=== PATIENT | female | born 1990 ===

== ENCOUNTER 2016-07-26 13:32 | Emergency (ER) | payer OTHER ==
[2016-07-26 13:46] VITALS: BP 121/85; PULSE 80; RESP 18; TEMP 98.4; O2SAT 100
--- NOTE | 2016-07-26 14:13 | ED PDOC ---
HPI: General Adult Time Seen by Provider: 07/26/16 13:49 Chief Complaint (Nursing): ENT Problem Chief Complaint (Provider): Left ear pain History Per: Patient History/Exam Limitations: no limitations Onset/Duration Of Symptoms: Days Have you had recent travel within the past 21 days to any of the following countries: [place], [place], [place] or [place]?: No Current Symptoms Are (Timing): Still Present Severity: Moderate Additional History Per: Patient Additional Complaint(s): The pt is a 25yo female, presents to the ED for evaluation of left ear pain, radiating down her left neck for the past 2 weeks. Pt reports initially the pain wasn't "bad" s she did not visit the ER but has been progressively worsening prompting her visit today. She reports she has been taking OTC pain medications without relief. She reports some associated headache. Pt denies any throat pain or fever. She offers no other medical complaints. NKDA Past Medical History Vital Signs: Last Vital Signs Temp 98.4 F 07/26/16 13:43 Pulse 80 07/26/16 13:43 Resp 18 07/26/16 13:43 BP 121/85 07/26/16 13:43 Pulse Ox 100 07/26/16 17:44 - Surgical History Surgical History: No Surg Hx - Family History Family History: States: No Known Family Hx - Social History Current smoker - smoking cessation education provided: No Alcohol: None Drugs: Denies - Immunization History Hx Tetanus Toxoid Vaccination: No Hx Influenza Vaccination: No Hx Pneumococcal Vaccination: No - Home Medications Home Medications: Ambulatory Orders Medication Instructions Recorded Sulfamethoxazole/Trimethoprim 1 tab PO BID #14 tab 01/06/16 [Bactrim DS 800 mg-160 mg] traMADol [Ultram] 50 mg PO Q8 #10 tab 01/28/16 Amoxicillin 875 mg PO BID #20 tab 07/26/16 - Allergies Allergies/Adverse Reactions: Allergies Allergy/AdvReac Type Severity Reaction Status Date / Time No Known Allergies Allergy Verified 11/11/13 23:05 Review of Systems ROS Statement: Except As Marked, All Systems Reviewed And Found Negative Constitutional: Negative for: Fever ENT: Positive for: Ear Pain (left) Musculoskeletal: Positive for: Neck Pain (left sided, radiating from left ear) Neurological: Positive for: Headache (mild) Physical Exam - Reviewed Nursing Documentation Reviewed: Yes Vital Signs Reviewed: Yes - Physical Exam Appears: Positive for: Well, Non-toxic, No Acute Distress Head Exam: Positive for: ATRAUMATIC, NORMAL INSPECTION, NORMOCEPHALIC Skin: Positive for: Normal Color Eye Exam: Positive for: Normal appearance ENT: Positive for: TM Is/Are (left TM mildly erythematous without perforation. Right TM normal. Left mastoid tenderness noted.) Neck: Positive for: Normal Cardiovascular/Chest: Positive for: Regular Rate, Rhythm Respiratory: Positive for: Normal Breath Sounds. Negative for: Respiratory Distress Neurologic/Psych: Positive for: Alert, Oriented - Laboratory Results Result Diagrams: 07/26/16 14:25 07/26/16 14:25 - ECG O2 Sat by Pulse Oximetry: 100 (RA) Pulse Ox Interpretation: Normal Medical Decision Making Medical Decision Making: Time: 1400 Impression: Left Otitis media Plan: -- CT Mastoid w/ contrast -- CMP -- CBC Time: 1728 CT Mastoid Findings: The mastoid portions of both temporal bones are well developed and currently well-aerated. The middle ear canals and contents are on unremarkable. The drum spurs and ossicular chains are intact and appropriately located. No soft tissue seen within Prussak space or within the middle ear canal. The tympanic membranes so far as can be seen appear normal. The inner ear structures appear well-developed without gross abnormality. The internal auditory canals are unremarkable with symmetric appearing right and left porous acusticus. . The external auditory canals are clear. No bony destructive changes are identified. Impression: Unremarkable examination of the temporal bones. Scribe Attestation: Documented by Latasha Massey, acting as a scribe for FRANCK Wolff Provider Attestation: All medical record entries made by the Scribe were at my direction and personally dictated by me. I have reviewed the chart and agree that the record accurately reflects my personal performance of the history, physical exam, medical decision making, and the department course for this patient. I have also personally directed, reviewed, and agree with the discharge instructions and disposition. Disposition - Clinical Impression Clinical Impression: Left ear pain - Patient ED Disposition Is Patient to be Admitted: No Counseled Patient/Family Regarding: Diagnosis, Need For Followup, Rx Given - Disposition Referrals: [facility] [Outside] Disposition: Routine/Home Disposition Time: 17:44 Condition: GOOD Prescriptions: Amoxicillin 875 mg PO BID #20 tab Instructions: Earache (ED) Print Language: OCCITAN
[2016-07-26 14:34] LABS: BASO % 0.5 % (0.0-2.0); EOS % 0.6 % (0.0-4.0); HEMATOCRIT 30.4 % (34.0-47.0); LYMPH # 2.2 K/uL (1.0-4.3); LYMPH % 32.9 % (20.0-40.0); MEAN CELL VOLUME 81.7 fl (81.0-99.0); MEAN PLATELET VOLUME 8.2 fl (7.2-11.7); MONO # 0.5 K/uL (0.0-0.8); NEUT # 3.9 K/uL (1.8-7.0); NRBC % 0.1 % (0.0-0.0); RED CELL DISTRIBUTION WIDTH 16.3 % (11.5-14.5); WHITE BLOOD COUNT 6.6 K/uL (4.8-10.8)
[2016-07-26 14:50] LABS: ALB/GLOB RATIO 1.2 (1.0-2.1); ALKALINE PHOSPHATASE 55 U/L (38-126); ALT/SGPT 29 U/L (9-52); AST/SGOT 31 U/L (14-36); BILIRUBIN,TOTAL 0.2 mg/dl (0.2-1.3); BLOOD UREA NITROGEN 15 mg/dl (7-17); CALCIUM 9.1 mg/dL (8.4-10.2); CARBON DIOXIDE 24 mmol/L (22-30); CHLORIDE 107 mmol/L (98-107); GFR AFRICAN-AMERICAN > 60; GLUCOSE,RANDOM 86 mg/dL (65-105); POTASSIUM 3.8 MMOL/L (3.6-5.0); SODIUM 140 mmol/l (132-148); TOTAL PROTEIN 7.8 G/DL (6.3-8.2)
[2016-07-26] MEDS ORDERED: Sodium Chloride 0.9% 50 ML IV ONE (15:23)
[2016-07-26] MEDS ORDERED: Iohexol 300 100 ML IJ ONE (15:23)
[2016-07-26] MEDS ORDERED: Sodium Chloride 0.9% 1,000 ML IV STA (15:51)
--- NOTE | 2016-07-26 17:30 | CT ---
PROCEDURE: CT scan of the temporal bones dated the 07/26/2016 HISTORY: Left-sided mastoid tenderness, otalgia x 3 weeks COMPARISON: Comparison made with prior CT scan of the brain and cervical spine 06/09/2014 which also imaged the mastoid air complexes TECHNIQUE: Following administration of iodinated intravenous contrast, high resolution axial images of the temporal bones were obtained. Coronal and sagittal reformats were generated. Contrast dose: 90 cc Omnipaque 300 contrast material. Radiation dose: Total exam DLP = 597.97 mGy-cm. This CT exam was performed using one or more of the following dose reduction techniques: Automated exposure control, adjustment of the mA and/or kV according to patient size, and/or use of iterative reconstruction technique Findings: The mastoid portions of both temporal bones are well developed and currently well-aerated. . . The middle ear canals and contents are on unremarkable. The drum spurs and ossicular chains are intact and appropriately located. No soft tissue seen within Prussak space or within the middle ear canal. The tympanic membranes so far as can be seen appear normal. The inner ear structures appear well-developed without gross abnormality. The internal auditory canals are unremarkable with symmetric appearing right and left porous acusticus. . The external auditory canals are clear. No bony destructive changes are identified. Impression: Unremarkable examination of the temporal bones.
== END 2016-07-26 18:18 | disposition home or self-care (01) ==
LOC: H.ER 13:32
DX: H66.92 Otitis media, unspecified, left ear (principal); R51 Headache; M54.2 Cervicalgia

== ENCOUNTER 2016-08-22 16:25 | Emergency (ER) | payer OTHER ==
[2016-08-22] MEDS ORDERED: Sodium Chloride 0.9% 1,000 ML IV STA (17:13)
[2016-08-22 17:36] LABS: BASO % 0.3 % (0.0-2.0); EOS % 0.2 % (0.0-4.0); HEMOGLOBIN 9.7 g/dL (12.0-16.0); LYMPH # 1.3 K/uL (1.0-4.3); LYMPH % 16.4 % (20.0-40.0); MEAN CELL VOLUME 82.7 fl (81.0-99.0); MEAN CORPUSCULAR HEMOGLOBIN 26.7 pg (27.0-31.0); MEAN CORPUSCULAR HGB CONC 32.3 g/dL (33.0-37.0); MEAN PLATELET VOLUME 8.5 fl (7.2-11.7); MONO # 0.6 K/uL (0.0-0.8); MONO % 7.1 % (0.0-10.0); NEUT # 6.2 K/uL (1.8-7.0); RBC 3.64 Mil/uL (3.80-5.20); RED CELL DISTRIBUTION WIDTH 16.7 % (11.5-14.5); WHITE BLOOD COUNT 8.2 K/uL (4.8-10.8)
[2016-08-22 17:57] LABS: BLOOD UREA NITROGEN 9 mg/dl (7-17); CALCIUM 9.2 mg/dL (8.4-10.2); GFR AFRICAN-AMERICAN > 60; GFR NON-AFRICAN AMERICAN > 60
[2016-08-22] MEDS ORDERED: Sodium Chloride 0.9% 50 ML IV ONE (18:05)
[2016-08-22] MEDS ORDERED: Iohexol 300 100 ML IJ ONE (18:05)
--- NOTE | 2016-08-22 18:18 | ED PDOC ---
HPI: Abdomen Time Seen by Provider: 08/22/16 16:47 Chief Complaint (Nursing): Abdominal Pain Chief Complaint (Provider): Left flank pain, abdominal pain History Per: Patient History/Exam Limitations: no limitations Onset/Duration Of Symptoms: Days (6) Outside of [place] travel?: No Current Symptoms Are (Timing): Still Present Additional Complaint(s): The pt is a 25yo female, presents to ED for evaluation of left flank and left abdominal pain for the past 6 days which has been progressively worsening. Pt reports she took Exedrin for pain with some relief. She denies any dysuria, reports some cloudy urine; denies any fever or vomiting. Of note, reports she has a Hx of UTI and b/l kidney stones. She denies any other medical complaints. PCP: None provided Abnormal Vaginal Bleeding: No Past Medical History Reviewed: Historical Data, Nursing Documentation, Vital Signs Vital Signs: Last Vital Signs Temp 98.6 F 08/22/16 16:28 Pulse 105 H 08/22/16 16:28 Resp 18 08/22/16 16:28 BP 118/69 08/22/16 16:28 Pulse Ox 100 08/22/16 18:35 - Medical History PMH: Kidney Stones - Surgical History Surgical History: No Surg Hx - Family History Family History: States: No Known Family Hx - Social History Current smoker - smoking cessation education provided: No Alcohol: None Drugs: Denies - Immunization History Hx Tetanus Toxoid Vaccination: No Hx Influenza Vaccination: No Hx Pneumococcal Vaccination: No - Home Medications Home Medications: Ambulatory Orders Medication Instructions Recorded Sulfamethoxazole/Trimethoprim 1 tab PO BID #14 tab 01/06/16 [Bactrim DS 800 mg-160 mg] traMADol [Ultram] 50 mg PO Q8 #10 tab 01/28/16 Amoxicillin 875 mg PO BID #20 tab 07/26/16 - Allergies Allergies/Adverse Reactions: Allergies Allergy/AdvReac Type Severity Reaction Status Date / Time No Known Allergies Allergy Verified 11/11/13 23:05 Review of Systems ROS Statement: Except As Marked, All Systems Reviewed And Found Negative Constitutional: Negative for: Fever Gastrointestinal: Positive for: Abdominal Pain Genitourinary Female: Positive for: Other (cloudy urine). Negative for: Dysuria Physical Exam - Reviewed Nursing Documentation Reviewed: Yes Vital Signs Reviewed: Yes - Physical Exam Appears: Positive for: Well, Non-toxic, No Acute Distress Head Exam: Positive for: ATRAUMATIC, NORMAL INSPECTION, NORMOCEPHALIC Skin: Positive for: Normal Color, Warm, DRY Eye Exam: Positive for: Normal appearance Neck: Positive for: Normal, Supple Cardiovascular/Chest: Positive for: Regular Rate, Rhythm Respiratory: Positive for: Normal Breath Sounds. Negative for: Respiratory Distress Gastrointestinal/Abdominal: Positive for: Tenderness (left upper quadrant, left lower quadrant tenderness) Back: Positive for: Normal Inspection. Negative for: L CVA Tenderness Extremity: Positive for: Normal ROM. Negative for: Deformity, Swelling Neurologic/Psych: Positive for: Alert, Oriented (x3) - Laboratory Results Result Diagrams: 08/22/16 17:28 08/22/16 17:28 - ECG O2 Sat by Pulse Oximetry: 100 (RA) Pulse Ox Interpretation: Normal Medical Decision Making Medical Decision Making: Time: 1700 Impression: Left sided flank pain Differential: UTI vs. renal colic; other diagnosis considered but not listed Plan: -- CT AP -- Toradol -- IV Fluids -- Blood culture Reassess Scribe Attestation: Documented by Latasha Massey acting as a scribe for Cesar Raymundo MD. Provider Attestation: All medical record entries made by the Scribe were at my direction and personally dictated by me. I have reviewed the chart and agree that the record accurately reflects my personal performance of the history, physical exam, medical decision making, and the department course for this patient. I have also personally directed, reviewed, and agree with the discharge instructions and disposition. Disposition - Clinical Impression Clinical Impression: Urinary tract infection, Left flank pain - Patient ED Disposition Is Patient to be Admitted: Transfer of Care Counseled Patient/Family Regarding: Studies Performed, Diagnosis - Disposition Disposition: Transfer of Care Disposition Time: 19:00 Condition: STABLE Patient Signed Over To: Colt Ratliff Handoff Comments: pending imaging studies
--- NOTE | 2016-08-22 18:52 | CT ---
PROCEDURE: CT Abdomen and Pelvis with contrast HISTORY: left flank pain, UTI COMPARISON: 01/28/2016 CT abdomen and pelvis. TECHNIQUE: Contrast dose: 90 cc Omnipaque 300 Radiation dose: Total exam DLP = 617.15 mGy-cm. This CT exam was performed using one or more of the following dose reduction techniques: Automated exposure control, adjustment of the mA and/or kV according to patient size, and/or use of iterative reconstruction technique. FINDINGS: LOWER THORAX: Unremarkable. LIVER: Unremarkable. No gross lesion or ductal dilatation. GALLBLADDER AND BILE DUCTS: Unremarkable. PANCREAS: Unremarkable. No gross lesion or ductal dilatation. SPLEEN: Unremarkable. ADRENALS: Unremarkable. No mass. KIDNEYS AND URETERS: Right kidney: Unremarkable. No hydronephrosis. No solid mass. Left kidney in ureter: Mild dilatation of the left collecting system and ureter. The wall of the collecting system and ureter is slightly thickened and displays contrast-enhancing characteristics suggestive of ureteritis. VASCULATURE: Unremarkable. No aortic aneurysm. BOWEL: Unremarkable. No obstruction. No gross mural thickening. Constipation without fecal impaction or obstruction. APPENDIX: Normal appendix. PERITONEUM: Unremarkable. No free fluid. No free air. LYMPH NODES: Unremarkable. No enlarged lymph nodes. BLADDER: Partially collapsed urinary bladder accentuating bladder wall thickness. REPRODUCTIVE: Stable position of IUD. Stable appearance of right ovarian cyst. BONES: No acute fracture. OTHER FINDINGS: None. IMPRESSION: Mildly prominent left collecting system and ureter the overall findings suggests inflammatory process/ ureteritis -pyelitis. No evidence of calculus disease or other pathologic process. Additional benign and/or incidental findings described above.
--- NOTE | 2016-08-22 19:02 | ED PDOC ---
- Laboratory Results Result Diagrams: 08/22/16 17:28 08/22/16 17:28 - ECG O2 Sat by Pulse Oximetry: 100 (RA) Pulse Ox Interpretation: Normal Medical Decision Making Medical Decision Making: Receiving sign out: Pt signed out to me by Dr. Raymundo pending CT AP. Scribe Attestation: Documented by Latasha Massey acting as a scribe for Colt Ratliff MD. Provider Attestation: All medical record entries made by the Scribe were at my direction and personally dictated by me. I have reviewed the chart and agree that the record accurately reflects my personal performance of the history, physical exam, medical decision making, and the department course for this patient. I have also personally directed, reviewed, and agree with the discharge instructions and disposition. Disposition - Clinical Impression Clinical Impression: Urinary tract infection, Ureteritis - POA Present On Arrival: None - Disposition Referrals: [facility] [Outside] Disposition: Routine/Home Disposition Time: 19:30 Condition: STABLE Prescriptions: Ciprofloxacin [Cipro] 500 mg PO BID 7 Days Ibuprofen [Motrin Tab] 600 mg PO Q6 #30 tab Instructions: Urinary Tract Infection in Women (ED) Print Language: ESTONIAN Progress Note - Review of Symptoms Events since last encounter: Time: 1929 CT AP IMPRESSION: Mildly prominent left collecting system and ureter the overall findings suggests inflammatory process/ ureteritis -pyelitis. No evidence of calculus disease or other pathologic process. Pt reports pain has improved. Stable for d/c home. Will follow up at clinic and apply for diallo care.
[2016-08-22] MEDS ORDERED: cefTRIAXone (Rocephin) 1 gm Inj ONE (19:16)
[2016-08-22 19:31] VITALS: BP 105/52; PULSE 65; RESP 16; TEMP 98.2
[2016-08-22 19:36] VITALS: O2SAT 100
== END 2016-08-22 21:53 | disposition home or self-care (01) ==
LOC: H.ER 16:25
DX: N39.0 Urinary tract infection, site not specified (principal); N34.1 Nonspecific urethritis

== ENCOUNTER 2016-08-23 02:54 | Emergency (ER) | payer SELFPAY ==
[2016-08-23 03:19] VITALS: BMI 25.7
[2016-08-23 03:21] VITALS: RESP 16; O2SAT 98
--- NOTE | 2016-08-23 04:09 | ED PDOC ---
HPI: Abdomen Time Seen by Provider: 08/23/16 03:07 Chief Complaint (Nursing): Abdominal Pain Chief Complaint (Provider): Abdominal Pain History Per: Patient History/Exam Limitations: no limitations Outside of [place] travel?: No Current Symptoms Are (Timing): Still Present Location Of Pain/Discomfort: LUQ, LLQ Quality Of Discomfort: "Pain" Exacerbating Factors: None Alleviating Factors: None Additional Complaint(s): 25 year old female presents to ED with complaints of weakness and abdominal pain and has a history of kidney stones. Patient was discharged from ED x2-3 hours ago with prescriptions for antibiotics and pain medications. States that she is unable to fill them due to her weakness. Denies any new symptoms. PCP: BERNARD Past Medical History Reviewed: Historical Data, Nursing Documentation, Vital Signs Vital Signs: Last Vital Signs Temp 98.0 F 08/23/16 03:06 Pulse 120 H 08/23/16 03:06 Resp 16 08/23/16 03:06 BP 126/76 08/23/16 03:06 Pulse Ox 98 08/23/16 04:16 - Medical History PMH: Kidney Stones Denies: No Chronic Diseases - Surgical History Surgical History: No Surg Hx - Family History Family History: States: No Known Family Hx - Living Arrangements Living Arrangements: Alone - Immunization History Hx Tetanus Toxoid Vaccination: No Hx Influenza Vaccination: No Hx Pneumococcal Vaccination: No - Home Medications Home Medications: Ambulatory Orders Medication Instructions Recorded Sulfamethoxazole/Trimethoprim 1 tab PO BID #14 tab 01/06/16 [Bactrim DS 800 mg-160 mg] traMADol [Ultram] 50 mg PO Q8 #10 tab 01/28/16 Amoxicillin 875 mg PO BID #20 tab 07/26/16 Ciprofloxacin [Cipro] 500 mg PO BID 7 Days 08/22/16 Ibuprofen [Motrin Tab] 600 mg PO Q6 #30 tab 08/22/16 - Allergies Allergies/Adverse Reactions: Allergies Allergy/AdvReac Type Severity Reaction Status Date / Time No Known Allergies Allergy Verified 11/11/13 23:05 Review of Systems ROS Statement: Except As Marked, All Systems Reviewed And Found Negative Gastrointestinal: Positive for: Abdominal Pain Neurological: Positive for: Weakness Physical Exam - Reviewed Nursing Documentation Reviewed: Yes Vital Signs Reviewed: Yes - Physical Exam Appears: Positive for: Non-toxic Skin: Positive for: Normal Color, Warm, Dry Cardiovascular/Chest: Positive for: Regular Rate, Rhythm. Negative for: Murmur Respiratory: Positive for: Normal Breath Sounds. Negative for: Respiratory Distress Gastrointestinal/Abdominal: Positive for: Soft, Tenderness (left flank has mild tenderness) Back: Positive for: Normal Inspection Extremity: Positive for: Normal ROM. Negative for: Deformity Neurologic/Psych: Positive for: Alert, Oriented. Negative for: Motor/Sensory Deficits - ECG O2 Sat by Pulse Oximetry: 98 (RA) Pulse Ox Interpretation: Normal Medical Decision Making Medical Decision Makin Initial impression: flank pain related to previous diagnosis of ureteritis Initial plan: * Toradol 30mg IVP * Re-eval 0407 Upon re-evaluation, patient is feeling much better and is medically stable and ready for discharge. Counseling has been provided and patient is in agreement. Return if symptoms persist or acutely worsen. Scribe Attestation: Documented by Erna Enriquez acting as a scribe for Colt Ratliff MD. Scribe Attestation: All medical record entries made by the Scribe were at my direction and personally dictated by me. I have reviewed the chart and agree that the record accurately reflects my personal performance of the history, physical exam, medical decision making, and the department course for this patient. I have also personally directed, reviewed, and agree with the discharge instructions and disposition. Disposition - Clinical Impression Clinical Impression: Ureteritis - Disposition Referrals: [facility] [Outside] Disposition: Routine/Home Disposition Time: 04:07 Condition: STABLE Instructions: Urinary Tract Infection in Women (DC)
[2016-08-23 04:26] VITALS: BP 110/54; PULSE 102; TEMP 100.9
== END 2016-08-23 04:30 | disposition home or self-care (01) ==
LOC: H.ER 02:54
DX: N28.89 Other specified disorders of kidney and ureter (principal)
CPT/HCPCS: 96372; 99283; J1885

== ENCOUNTER 2017-12-21 23:22 | Emergency (ER) | payer SELFPAY ==
[2017-12-21 23:23] VITALS: BMI 25.7
[2017-12-21 23:40] VITALS: TEMP 98.3
[2017-12-22 00:51] LABS: URINE BACTERIA RARE (<OCC); URINE BILIRUBIN NEGATIVE (NEGATIVE); URINE BLOOD MODERATE (NEGATIVE); URINE CLARITY CLEAR (Clear); URINE COLOR STRAW (YELLOW); URINE GLUCOSE (UA) NEG (Normal); URINE LEUKOCYTE ESTERASE LARGE Leu/uL (Negative); URINE PROTEIN NEGATIVE (NEGATIVE); URINE UROBILINOGEN 0.2-1.0 mg/dL (0.2-1.0)
--- NOTE | 2017-12-22 00:52 | ED PDOC ---
HPI: Female Pain Time Seen by Provider: 12/22/17 00:30 Chief Complaint (Nursing): Female Genitourinary Chief Complaint (Provider): pelvic pain History Per: Patient History/Exam Limitations: no limitations Onset/Duration Of Symptoms: Days (4) Current Symptoms Are (Timing): Still Present Associated Symptoms: Nausea Additional Complaint(s): 27 y/o female presents for evaluation of left lower pelvic pain on-and-off x months, worse x 4 days. Associated nausea, dysuria. Denies fever, vomiting, chest pain, shortness of breath, changes in bowel movements, back pain, vaginal bleeding/discharge. LMP: 11/19/17 Past Medical History Reviewed: Historical Data, Nursing Documentation, Vital Signs Vital Signs: Last Vital Signs Temp 98.3 F 12/21/17 23:38 Pulse 63 12/21/17 23:38 Resp 20 12/21/17 23:38 BP 100/64 12/21/17 23:38 Pulse Ox 100 12/21/17 23:38 - Medical History PMH: Kidney Stones - Surgical History Surgical History: No Surg Hx - Family History Family History: States: No Known Family Hx - Immunization History Hx Tetanus Toxoid Vaccination: No Hx Influenza Vaccination: No Hx Pneumococcal Vaccination: No - Home Medications Home Medications: Ambulatory Orders Medication Instructions Recorded Sulfamethoxazole/Trimethoprim 1 tab PO BID #14 tab 01/06/16 [Bactrim DS 800 mg-160 mg] traMADol [Ultram] 50 mg PO Q8 #10 tab 01/28/16 Amoxicillin 875 mg PO BID #20 tab 07/26/16 Ciprofloxacin [Cipro] 500 mg PO BID 7 Days tab 08/22/16 Ibuprofen [Motrin Tab] 600 mg PO Q6 #30 tab 08/22/16 Naproxen [Naprosyn] 500 mg PO Q12 PRN #20 tablet 12/22/17 Nitrofurantoin Macrocrystals 100 mg PO BID #13 cap 12/22/17 [Macrobid] - Allergies Allergies/Adverse Reactions: Allergies Allergy/AdvReac Type Severity Reaction Status Date / Time No Known Allergies Allergy Verified 11/11/13 23:05 Review of Systems ROS Statement: Except As Marked, All Systems Reviewed And Found Negative Gastrointestinal: Positive for: Nausea Genitourinary Female: Positive for: Dysuria, Pelvic Pain Physical Exam - Reviewed Nursing Documentation Reviewed: Yes Vital Signs Reviewed: Yes - Physical Exam Appears: Positive for: Well, Non-toxic, No Acute Distress Head Exam: Positive for: ATRAUMATIC, NORMAL INSPECTION, NORMOCEPHALIC Skin: Positive for: Normal Color Eye Exam: Positive for: Normal appearance ENT: Positive for: Normal ENT Inspection Cardiovascular/Chest: Positive for: Regular Rate, Rhythm Respiratory: Positive for: Normal Breath Sounds Gastrointestinal/Abdominal: Positive for: Bowel Sounds, Soft, Tenderness (suprapubic, LLQ) Pelvic Exam: Positive for: External Exam Normal, No Cerv. Motion Tender, Discharge (white), Other (exam navy seal Jennifer Graves RN). Negative for: Active Bleeding, Blood, Cervicitis Back: Positive for: Normal Inspection. Negative for: L CVA Tenderness, R CVA Tenderness Extremity: Positive for: Normal ROM Neurologic/Psych: Positive for: Alert, Oriented (x3) - Laboratory Results Result Diagrams: 12/22/17 01:22 12/22/17 01:22 - ECG O2 Sat by Pulse Oximetry: 100 - Progress ED Course And Treament: labs, urine, TV u/s, IV toradol, IV zofran Ultrasound pelvis. Indication: Left-sided pelvic pain. Technique: Transvaginal real-time ultrasound images were obtained. Transabdominal ultrasound images. Findings: Uterus measures 9.3x5x6.2 cm. Endometrium is normal in thickness measuring 13 mm. Intrauterine device is noted. This is identified at the level of the endometrial canal in the lower uterine body extending to the endocervical canal. No free fluid is noted in the pelvic cul-de-sac. Right ovarian cyst measuring 3.7 cm. Otherwise normal right ovary. Normal left ovary. Impression: Right ovarian cyst without evidence of ovarian torsion. Low position of the intrauterine device. Unremarkable left ovary. On re-eval, patient states pain improved Patient educated on findings, discharged with rx Naproxen, Macrobid Advised follow up [employer] within 2-3 days Return precautions given Disposition - Clinical Impression Clinical Impression: Ovarian cyst, Urinary tract infection, Abdominal pain - Patient ED Disposition Is Patient to be Admitted: No Counseled Patient/Family Regarding: Studies Performed, Diagnosis, Need For Followup, Rx Given - Disposition Referrals: [facility] [Outside] [facility] [[facility] Disposition: Routine/Home Disposition Time: 04:31 Condition: IMPROVED Prescriptions: Naproxen [Naprosyn] 500 mg PO Q12 PRN #20 tablet PRN Reason: Pain, Moderate (4-7) Nitrofurantoin Macrocrystals [Macrobid] 100 mg PO BID #13 cap Instructions: Ovarian Cysts, Urinary Tract Infections in Adults, Acute Abdomen (Belly Pain), Adult (DC) Print Language: ALBANIAN
[2017-12-22 00:58] LABS: SQUAMOUS EPITHIAL 20 /hpf (0-5)
[2017-12-22 01:25] LABS: BASO % 0.7 % (0.0-2.0); EOS # 0.1 K/uL (0.0-0.7); EOS % 1.7 % (0.0-4.0); HEMOGLOBIN 11.5 g/dL (12.0-16.0); LYMPH % 42.3 % (20.0-40.0); MEAN CELL VOLUME 89.1 fl (81.0-99.0); MEAN CORPUSCULAR HEMOGLOBIN 29.3 pg (27.0-31.0); MEAN CORPUSCULAR HGB CONC 32.9 g/dL (33.0-37.0); MEAN PLATELET VOLUME 8.5 fl (7.2-11.7); MONO # 0.5 K/uL (0.0-0.8); MONO % 6.6 % (0.0-10.0); NEUT # 3.5 K/uL (1.8-7.0); NEUT % 48.7 % (50.0-75.0); RBC 3.94 Mil/uL (3.80-5.20); RED CELL DISTRIBUTION WIDTH 13.6 % (11.5-14.5); WHITE BLOOD COUNT 7.2 K/uL (4.8-10.8)
[2017-12-22 01:36] LABS: ALB/GLOB RATIO 1.1 (1.0-2.1); ALBUMIN 4.3 g/dL (3.5-5.0); ALT/SGPT 15 U/L (9-52); AST/SGOT 27 U/L (14-36); BLOOD UREA NITROGEN 13 mg/dl (7-17); CALCIUM 9.2 mg/dL (8.4-10.2); GFR NON-AFRICAN AMERICAN > 60
[2017-12-22 04:30] VITALS: BP 109/69; PULSE 67; RESP 18
[2017-12-22 04:32] VITALS: O2SAT 100
--- NOTE | 2017-12-22 12:24 | US ---
Date of service: 12/22/2017 HISTORY: suprapubic, left pelvic pain COMPARISON: Comparison is made to the previous study dated 01/28/2016 TECHNIQUE: Endovaginal ultrasound examination of the pelvis was obtained. FINDINGS: UTERUS: Measures 9.3 x 5 x 6.2 cm. Normal in size and appearance. No fibroid or other mass lesion seen. ENDOMETRIUM: Measures 13 mm in diameter. There IUD noted at the lower uterine segment and proximal portion of the uterine body. CERVIX: No cervical abnormality identified. RIGHT OVARY: Measures 4.3 x 3.7 x 3.7 cm. No solid mass. Normal flow. There is a cyst seen at the right ovary measures 3.7 x 2.8 x 3.2 centimeter. LEFT OVARY: Measures 2.9 x 2.3 x 2.2 cm. No solid mass. Normal flow. FREE FLUID: No significant free fluid noted. OTHER FINDINGS: None. IMPRESSION: Anteverted uterus. IUD noted at lower uterine segment. 3.7 centimeters cyst at right ovary.
== END 2017-12-22 05:18 | disposition home or self-care (01) ==
LOC: H.ER 23:22
DX: N39.0 Urinary tract infection, site not specified (principal); N83.201 Unspecified ovarian cyst, right side; R10.9 Unspecified abdominal pain
CPT/HCPCS: 76830; 80053; 81003; 81025; 85025; 87070; 87086; 87491; 87591; 99283; J1885; J2405

== ENCOUNTER 2018-01-07 11:49 | Emergency (ER) | payer SELFPAY ==
[2018-01-07 12:04] VITALS: RESP 18; O2SAT 100
[2018-01-07 12:05] VITALS: BMI 29.2
[2018-01-07] MEDS ORDERED: Oxycodone/Acetaminophen 5/325 mg Tab PO STA (13:00)
[2018-01-07] MEDS ORDERED: Oxycodone/Acetaminophen 5/325 mg Tab ONE (13:06)
[2018-01-07 13:16] LABS: BASO % 0.8 % (0.0-2.0); EOS # 0.1 K/uL (0.0-0.7); EOS % 1.9 % (0.0-4.0); HEMOGLOBIN 10.7 g/dL (12.0-16.0); LYMPH # 1.9 K/uL (1.0-4.3); MEAN CORPUSCULAR HEMOGLOBIN 29.2 pg (27.0-31.0); MEAN CORPUSCULAR HGB CONC 32.8 g/dL (33.0-37.0); MEAN PLATELET VOLUME 7.9 fl (7.2-11.7); MONO # 0.4 K/uL (0.0-0.8); MONO % 9.4 % (0.0-10.0); NEUT # 1.8 K/uL (1.8-7.0); NEUT % 42.9 % (50.0-75.0); NRBC % 0.1 % (0.0-0.0); RBC 3.67 Mil/uL (3.80-5.20); RED CELL DISTRIBUTION WIDTH 13.5 % (11.5-14.5); WHITE BLOOD COUNT 4.1 K/uL (4.8-10.8)
[2018-01-07 13:28] LABS: ALB/GLOB RATIO 1.3 (1.0-2.1); ALT/SGPT 27 U/L (9-52); AST/SGOT 26 U/L (14-36); BLOOD UREA NITROGEN 12 mg/dl (7-17); CALCIUM 8.6 mg/dL (8.4-10.2); GFR NON-AFRICAN AMERICAN > 60
--- NOTE | 2018-01-07 13:28 | ED PDOC ---
HPI: Abdomen Time Seen by Provider: 01/07/18 12:01 Chief Complaint (Nursing): Abdominal Pain Chief Complaint (Provider): Abdominal Pain History Per: Patient History/Exam Limitations: no limitations Onset/Duration Of Symptoms: Other (x2 weeks) Current Symptoms Are (Timing): Still Present Associated Symptoms: denies: Fever, Nausea, Vomiting, Diarrhea, Constipation Additional Complaint(s): 27 year old female presents to the ED complaining of left lower back pain radiating to the left abdomen for the past 2 weeks. Patient was seen 2 weeks ago for the same symptoms and was told she had a low IUD so she had it removed. Denies fever, nausea, vomiting, diarrhea, constipation, vaginal discharge, or vaginal bleeding. Advil was last taken yesterday. PMD: Cb [place] Past Medical History Reviewed: Historical Data, Nursing Documentation, Vital Signs Vital Signs: Last Vital Signs Temp 99.0 F 01/07/18 12:10 Pulse 72 01/07/18 12:10 Resp 18 01/07/18 12:10 BP 112/71 01/07/18 12:03 Pulse Ox 100 01/07/18 12:10 - Medical History PMH: Kidney Stones - Surgical History Surgical History: No Surg Hx - Family History Family History: States: Unknown Family Hx - Immunization History Hx Tetanus Toxoid Vaccination: No Hx Influenza Vaccination: No Hx Pneumococcal Vaccination: No - Home Medications Home Medications: Ambulatory Orders Medication Instructions Recorded Sulfamethoxazole/Trimethoprim 1 tab PO BID #14 tab 01/06/16 [Bactrim DS 800 mg-160 mg] traMADol [Ultram] 50 mg PO Q8 #10 tab 01/28/16 Amoxicillin 875 mg PO BID #20 tab 07/26/16 Ciprofloxacin [Cipro] 500 mg PO BID 7 Days tab 08/22/16 Ibuprofen [Motrin Tab] 600 mg PO Q6 #30 tab 08/22/16 Naproxen [Naprosyn] 500 mg PO Q12 PRN #20 tablet 12/22/17 Nitrofurantoin Macrocrystals 100 mg PO BID #13 cap 12/22/17 [Macrobid] Naproxen [Naprosyn] 500 mg PO BID PRN #15 tablet 01/07/18 - Allergies Allergies/Adverse Reactions: Allergies Allergy/AdvReac Type Severity Reaction Status Date / Time No Known Allergies Allergy Verified 11/11/13 23:05 Review of Systems ROS Statement: Except As Marked, All Systems Reviewed And Found Negative Constitutional: Negative for: Fever Gastrointestinal: Positive for: Abdominal Pain (left abdominal pain). Negative for: Nausea, Vomiting, Diarrhea, Constipation Genitourinary Female: Negative for: Vaginal Discharge, Vaginal Bleeding Musculoskeletal: Positive for: Back Pain (left lower back pain) Physical Exam - Reviewed Nursing Documentation Reviewed: Yes Vital Signs Reviewed: Yes - Physical Exam Appears: Positive for: Non-toxic, No Acute Distress Head Exam: Positive for: ATRAUMATIC, NORMOCEPHALIC Skin: Positive for: Normal Color, Warm, Dry Eye Exam: Positive for: Normal appearance Neck: Positive for: Normal, Painless ROM Cardiovascular/Chest: Positive for: Regular Rate, Rhythm Respiratory: Positive for: Normal Breath Sounds. Negative for: Wheezing, Respiratory Distress Gastrointestinal/Abdominal: Positive for: Tenderness (LUQ and LLQ tenderness). Negative for: Guarding, Rebound Back: Positive for: Other (Left lower back tenderness). Negative for: L CVA Tenderness, R CVA Tenderness Extremity: Positive for: Normal ROM Neurologic/Psych: Positive for: Alert, Oriented. Negative for: Motor/Sensory Deficits - Laboratory Results Result Diagrams: 01/07/18 13:05 01/07/18 13:05 - ECG O2 Sat by Pulse Oximetry: 100 (RA) Pulse Ox Interpretation: Normal Medical Decision Making Medical Decision Making: Initial Impression: Abdominal pain Initial Plan: --CT abd/pelvis --CMP --ED urine --ED urine dipstick --CBC ---Oxycodone 1 tab PO Accession No. : [id number] Patient Name / ID : MICKI EDWARDS / [id number] Exam Date : 01/07/2018 13:17:14 ( Approved ) Study Comment : Sex / Age : F / 27Y Creator : Stan Laurent MD Dictator : Stan Laurent MD Product Support Sales Representative : [employer] Operator : Stan Laurent MD Approver2 : Report Date : 01/07/2018 13:54:57 My Comment : Date of service: 01/07/2018 PROCEDURE: CT Abdomen and Pelvis without intravenous contrast HISTORY: L flank/LLQ pain COMPARISON: None. TECHNIQUE: Helical CT of the abdomen and pelvis was performed without oral or intravenous contrast as per referring physician request. Coronal and sagittal reformats were generated. Contrast dose: None Radiation dose: Total exam DLP = 653.48 mGy-cm. This CT exam was performed using one or more of the following dose reduction techniques: Automated exposure control, adjustment of the mA and/or kV according to patient size, and/or use of iterative reconstruction technique. FINDINGS: LOWER THORAX: Unremarkable. LIVER: Unremarkable. No gross lesion or ductal dilatation. GALLBLADDER AND BILE DUCTS: Unremarkable. PANCREAS: Unremarkable. No gross lesion or ductal dilatation. SPLEEN: Unremarkable. ADRENALS: Unremarkable. No mass. KIDNEYS AND URETERS: There is no radiodense urolithiasis, obstructive uropathy or perinephric reaction bilaterally. Kidneys appear homogeneous in overall density throughout. Urinary bladder appears unremarkable as well. VASCULATURE: Unremarkable. No aortic aneurysm. No aortic atherosclerotic calcification or mural plaque present. BOWEL: Unremarkable. No obstruction. No gross mural thickening. APPENDIX: Appendicular at the tip of the appendix. No acute inflammatory changes. PERITONEUM: Unremarkable. No free fluid. No free air. LYMPH NODES: Unremarkable. No enlarged lymph nodes. BLADDER: Unremarkable. REPRODUCTIVE: 3.9 x 3.0 cm right adnexal cyst. No suspicious left adnexal findings. An essentially identical cyst was seen previously at the right adnexal compartment 08/22/2016 suggesting chronicity though this could be recurrent. BONES: No acute fracture. OTHER FINDINGS: None. IMPRESSION: There is no radiodense urolithiasis, obstructive uropathy or perinephric reaction bilaterally. Kidneys appear homogeneous in overall density throughout. Urinary bladder appears unremarkable as well. Otherwise, no bowel obstruction, mesenteric edema, ascites or free intra peritoneal gas collection. Note is made of a right adnexal cyst 3.9 cm greatest dimension, stable compared prior abdomen pelvis CT 08/22/2016 versus recurrence. ------- Scribe Attestation: Documented by Shamir Horton acting as a scribe for Rupinder Hudson MD. Provider Scribe Attestation: All medical record entries made by the Scribe were at my direction and personally dictated by me. I have reviewed the chart and agree that the record accurately reflects my personal performance of the history, physical exam, medical decision making, and the department course for this patient. I have also personally directed, reviewed, and agree with the discharge instructions and disposition. Disposition - Clinical Impression Clinical Impression: Abdominal pain in female - Disposition Referrals: [facility] [Outside] Disposition: Routine/Home Disposition Time: 14:41 Condition: IMPROVED Prescriptions: Naproxen [Naprosyn] 500 mg PO BID PRN #15 tablet PRN Reason: Pain, Moderate (4-7) Instructions: Acute Abdomen (Belly Pain) Forms: [employer] (Eth[place]ian) Print Language: TRISTANIAN
--- NOTE | 2018-01-07 13:58 | CT ---
Date of service: 01/07/2018 PROCEDURE: CT Abdomen and Pelvis without intravenous contrast HISTORY: L flank/LLQ pain COMPARISON: None. TECHNIQUE: Helical CT of the abdomen and pelvis was performed without oral or intravenous contrast as per referring physician request. Coronal and sagittal reformats were generated. Contrast dose: None Radiation dose: Total exam DLP = 653.48 mGy-cm. This CT exam was performed using one or more of the following dose reduction techniques: Automated exposure control, adjustment of the mA and/or kV according to patient size, and/or use of iterative reconstruction technique. FINDINGS: LOWER THORAX: Unremarkable. LIVER: Unremarkable. No gross lesion or ductal dilatation. GALLBLADDER AND BILE DUCTS: Unremarkable. PANCREAS: Unremarkable. No gross lesion or ductal dilatation. SPLEEN: Unremarkable. ADRENALS: Unremarkable. No mass. KIDNEYS AND URETERS: There is no radiodense urolithiasis, obstructive uropathy or perinephric reaction bilaterally. Kidneys appear homogeneous in overall density throughout. Urinary bladder appears unremarkable as well. VASCULATURE: Unremarkable. No aortic aneurysm. No aortic atherosclerotic calcification or mural plaque present. BOWEL: Unremarkable. No obstruction. No gross mural thickening. APPENDIX: Appendicular at the tip of the appendix. No acute inflammatory changes. PERITONEUM: Unremarkable. No free fluid. No free air. LYMPH NODES: Unremarkable. No enlarged lymph nodes. BLADDER: Unremarkable. REPRODUCTIVE: 3.9 x 3.0 cm right adnexal cyst. No suspicious left adnexal findings. An essentially identical cyst was seen previously at the right adnexal compartment 08/22/2016 suggesting chronicity though this could be recurrent. BONES: No acute fracture. OTHER FINDINGS: None. IMPRESSION: There is no radiodense urolithiasis, obstructive uropathy or perinephric reaction bilaterally. Kidneys appear homogeneous in overall density throughout. Urinary bladder appears unremarkable as well. Otherwise, no bowel obstruction, mesenteric edema, ascites or free intra peritoneal gas collection. Note is made of a right adnexal cyst 3.9 cm greatest dimension, stable compared prior abdomen pelvis CT 08/22/2016 versus recurrence.
[2018-01-07 14:50] VITALS: BP 108/68; PULSE 64; TEMP 97.9
== END 2018-01-07 15:06 | disposition home or self-care (01) ==
LOC: H.ER 11:49
DX: R10.9 Unspecified abdominal pain (principal)

== ENCOUNTER 2018-03-04 20:13 | Emergency (ER) | payer SELFPAY ==
[2018-03-04 20:13] VITALS: BMI 29.2
[2018-03-04 20:21] VITALS: RESP 18
[2018-03-04] MEDS ORDERED: Sodium Chloride 0.9% 1,000 ML IV STA (20:46)
--- NOTE | 2018-03-04 20:50 | ED PDOC ---
HPI: Headache Time Seen by Provider: 03/04/18 20:29 Chief Complaint (Nursing): Headache Chief Complaint (Provider): Headache History Per: Patient History/Exam Limitations: no limitations Onset/Duration Of Symptoms: Days (today) Current Symptoms Are (Timing): Still Present Associated Symptoms: Photophobia (mild), Nausea, Vomiting. denies: Blurred Vision, Extremity Weakness Additional Complaint(s): Pt. with nausea, vomit nonbloody with headache frontal. Similar to usual migraines. No weakness, numbness, tingles, abd pain, neck pain. No blurry vision. No fever. Took tylenol and excedrin. Past Medical History Reviewed: Vital Signs Vital Signs: Last Vital Signs Temp 97.2 F L 03/04/18 20:17 Pulse 69 03/04/18 20:17 Resp 18 03/04/18 20:17 BP 146/68 03/04/18 20:17 Pulse Ox 99 03/04/18 20:17 - Medical History PMH: Kidney Stones, Migraine - Surgical History Surgical History: No Surg Hx - Family History Family History: States: Unknown Family Hx - Immunization History Hx Tetanus Toxoid Vaccination: No Hx Influenza Vaccination: No Hx Pneumococcal Vaccination: No - Home Medications Home Medications: Ambulatory Orders Medication Instructions Recorded Sulfamethoxazole/Trimethoprim 1 tab PO BID #14 tab 01/06/16 [Bactrim DS 800 mg-160 mg] traMADol [Ultram] 50 mg PO Q8 #10 tab 01/28/16 Amoxicillin 875 mg PO BID #20 tab 07/26/16 Ciprofloxacin [Cipro] 500 mg PO BID 7 Days tab 08/22/16 Ibuprofen [Motrin Tab] 600 mg PO Q6 #30 tab 08/22/16 Naproxen [Naprosyn] 500 mg PO Q12 PRN #20 tablet 12/22/17 Nitrofurantoin Macrocrystals 100 mg PO BID #13 cap 12/22/17 [Macrobid] Naproxen [Naprosyn] 500 mg PO BID PRN #15 tablet 01/07/18 - Allergies Allergies/Adverse Reactions: Allergies Allergy/AdvReac Type Severity Reaction Status Date / Time No Known Allergies Allergy Verified 11/11/13 23:05 Review of Systems ROS Statement: Except As Marked, All Systems Reviewed And Found Negative Gastrointestinal: Positive for: Nausea, Vomiting Neurological: Positive for: Headache Physical Exam - Reviewed Nursing Documentation Reviewed: Yes Vital Signs Reviewed: Yes - Physical Exam Appears: Positive for: Non-toxic, No Acute Distress Head Exam: Positive for: ATRAUMATIC, NORMAL INSPECTION, NORMOCEPHALIC Skin: Positive for: Normal Color, Warm, DRY Eye Exam: Positive for: EOMI, Normal appearance, PERRL ENT: Positive for: Normal ENT Inspection Neck: Positive for: Normal, Painless ROM, Supple Cardiovascular/Chest: Positive for: Regular Rate, Rhythm Respiratory: Positive for: CNT, Normal Breath Sounds Gastrointestinal/Abdominal: Positive for: Normal Exam, Soft. Negative for: Tenderness Back: Positive for: Normal Inspection Extremity: Positive for: Normal ROM. Negative for: Tenderness Neurologic/Psych: Positive for: Alert, homoeopath II-XII, Oriented. Negative for: Motor/Sensory Deficits, Facial Droop - ECG O2 Sat by Pulse Oximetry: 99 Pulse Ox Interpretation: Normal - Progress ED Course And Treament: 2049: Stable. AAOx3. Will give reglan for pain control. 2149: Stable. AAOx3. Pain free. Tolerated PO. FU with pcp. Disposition - Clinical Impression Clinical Impression: Migraine - Patient ED Disposition Is Patient to be Admitted: No Counseled Patient/Family Regarding: Studies Performed, Diagnosis, Need For Followup - Disposition Referrals: [facility] [Outside] - 03/05/18 Disposition: Routine/Home Disposition Time: 21:51 Condition: STABLE Additional Instructions: Return if not better in 3 days. Instructions: Migraine Headaches in Adults Forms: [facility] ED School/Work Excuse
[2018-03-04 22:11] VITALS: BP 118/70; PULSE 71; TEMP 98.3; O2SAT 100
== END 2018-03-04 22:23 | disposition home or self-care (01) ==
LOC: H.ER 20:13
DX: G43.909 Migraine, unspecified, not intractable, without status migrainosus (principal)
CPT/HCPCS: 81025; 96360; 99285; J2765; J7030